=== PATIENT | male | born 1970 | race African-American/Black ===

== ENCOUNTER 2021-06-21 15:27 | Inpatient (IN) | payer MEDICAID, OTHER ==
[~2021-06-21] VITALS: Ht 185.4 cm; Wt 90.7 kg
[~2021-06-21 15:27] MED LIST: CARV25TA47; DILT60TA3; HCTZ PO; METF-414 PO
[2021-06-21] MEDS ORDERED: PIPERACILLIN/TAZ 3.375G PREMIX 50 ML IV ONE (15:45)
[2021-06-21] MEDS ORDERED: AZITHROMYCIN 500 MG in DEXT 5% WATER 250 ML IV ONE (15:45)
[2021-06-21] MEDS ORDERED: VANCOMYCIN 1 G PREMIX 200 ML IV ONE (15:45)
[2021-06-21 16:14] LABS: INR 1.1; PROTHROMBIN TIME 11.4 sec (9.6-11.0)
[2021-06-21] MEDS ORDERED: HYDRALAZINE 20MG/ML VIAL IV ONE (16:15)
[2021-06-21] MEDS ORDERED: FUROSEMIDE 40MG/4ML VIAL IVP ONE (16:15)
[2021-06-21 16:27] LABS: BASOPHILS % 0.2 % (0.0-2.0); HEMATOCRIT. 53.1 % (42.0-52.0); HEMOGLOBIN. 17.9 g/dL (14.0-18.0); LYMPHOCYTES % 11.3 % (20.0-50.0); MEAN CORPUSCULAR HEMOGLOBIN 31.1 pg (28.0-32.0); MEAN CORPUSCULAR VOLUME 92.5 fL (80.0-94.0); MEAN PLATELET VOLUME 12.8 fl (7.4-10.4); MONOCYTES % 10.9 % (2.0-8.0); NEUTROPHILS % 77.6 % (40.0-76.0); PLATELET 150 x1000/uL (130-400); RED BLOOD CELL COUNT 5.74 mill/uL (4.7-6.1); RED CELL DISTRIBUTION WIDTH 13.9 % (11.6-14.6)
[2021-06-21 17:08] LABS: CHLORIDE 95 mEq/L (98-107)
[2021-06-21 17:13] LABS: ETHANOL BLOOD < 10 mg/dL
[2021-06-21] MEDS ORDERED: INSULIN REGULAR (DRIP) 100 UNITS in SODIUM CHLORIDE 0.9% 99 ML IV NR (17:45)
[2021-06-21 18:51] LABS: CHLORIDE 95 mEq/L (98-107)
[2021-06-21 18:56] LABS: PHOSPHORUS 4.6 mg/dL (2.5-4.9)
[2021-06-21 20:46] LABS: CHLORIDE 97 mEq/L (98-107)
[2021-06-21 20:51] LABS: PHOSPHORUS 3.9 mg/dL (2.5-4.9)
[2021-06-21 23:06] LABS: CHLORIDE 100 mEq/L (98-107)
[2021-06-21 23:11] LABS: PHOSPHORUS 3.2 mg/dL (2.5-4.9)
[2021-06-21 23:53] LABS: CLARITY URINE CLEAR (CLEAR); COLOR URINE YELLOW (YELLOW); KETONES URINE 1+ (NEGATIVE); LEUKOCYTE ESTERASE URINE NEGATIVE (NEGATIVE); NITRITE URINE NEGATIVE (NEGATIVE); OCCULT BLOOD URINE NEGATIVE (NEGATIVE); PROTEIN URINE 1+ (NEGATIVE); SPECIFIC GRAVITY URINE 1.028 (1.005-1.030)
[2021-06-22 00:10] LABS: *AMPHETAMINES SCREEN URINE NEGATIVE (NEGATIVE); *COCAINE SCREEN URINE NEGATIVE (NEGATIVE); CANNABINOID URINE SCREEN NEGATIVE (NEGATIVE); METHADONE URINE SCREEN NEGATIVE (NEGATIVE); OPIATES URINE SCREEN NEGATIVE (NEGATIVE); PHENCYCLIDINE URINE SCREEN NEGATIVE (NEGATIVE)
[2021-06-22 00:11] LABS: *BARBITURATES SCREEN URINE NEGATIVE (NEGATIVE); *BENZODIAZEPINES SCREEN URINE NEGATIVE (NEGATIVE)
[2021-06-22] MEDS ORDERED: DEXTROSE 50% WATER 50ML SYRINGE IV PRN ×3 (00:30→04:00)
[2021-06-22] MEDS: SODIUM CHLORIDE 0.9% 1,000 ML IV SCH ×2 (00:37→08:35)
[2021-06-22] MEDS ORDERED: BLOOD SUGAR DIAGNOSTIC STRIP TEST SCH (01:00)
[2021-06-22 02:41] LABS: CHLORIDE 102 mEq/L (98-107)
[2021-06-22] MEDS: INSULIN LISPRO (MEDIUM DOSE) 100 UNITS/ML SUBCUT SCH ×6 (04:32→21:26)
[2021-06-22] MEDS ORDERED: INSULIN REGULAR (DRIP) 100 UNITS in SODIUM CHLORIDE 0.9% 100 ML IV SCH (06:00)
[2021-06-22 06:52] LABS: CHLORIDE 103 mEq/L (98-107)
[2021-06-22] MEDS ORDERED: INSULIN GLARGINE UD 100 UNITS/ML SYR SUBCUT SCH (10:00)
[2021-06-22 10:42] LABS: CHLORIDE 103 mEq/L (98-107)
[2021-06-22] MEDS ORDERED: ONDANSETRON HCL 4MG/2ML INJ IV PRN (10:45)
[2021-06-22] MEDS: BLOOD SUGAR DIAGNOSTIC STRIP TEST SCH ×3 (11:30→21:27)
[2021-06-22] MEDS: AZITHROMYCIN 250 MG TABLET PO SCH (11:45)
[2021-06-22] MEDS: CEFTRIAXONE 1,000 MG in DEXTROSE 5% WATER 50 ML IV SCH (11:46)
[2021-06-22] MEDS: ENOXAPARIN 40MG/0.4ML SYR SUBCUT SCH (11:46)
[2021-06-22 12:03] LABS: BG BASE EXCESS 0.2 mmol/L (-2.0-2.0); BG CARBOXYHEMOGLOBIN 0.3 % (0.5-1.5); BG DEOXYHEMOGLOBIN 4.4 % (0.0-5.0); BG FRACTION INSPIRED OXYGEN 100; BG HCO3 ACT 23.6 mmol/L (22.0-26.0); BG METHEMOGLOBIN 0.4 % (0.0-1.5); BG OXYGEN SATURATION 95.6 % (92.0-98.5); BG OXYHEMOGLOBIN 94.9 % (94.0-97.0); BG PH 7.446 (7.350-7.450); BG PO2 79.2 mmHg (75.0-100.0); BG SAMPLE SITE RIGHT RADIAL; BG TOTAL HEMOGLOBIN 18.5 g/dL (12.0-18.0); BG VENT MODE MASK - NRB
[2021-06-22 14:00] VITALS: BP 148/96
[2021-06-22] MEDS: INSULIN LISPRO 100 UNITS/ML SUBCUT SCH ×2 (14:14→17:46)
[2021-06-22 16:00] VITALS: BP 142/85
[2021-06-22] MEDS ORDERED: DEXAMETHASONE 10 MG/ML VIAL IV SCH (18:00)
[2021-06-22 20:00] VITALS: BP 143/96
[2021-06-22] MEDS: INSULIN GLARGINE UD 100 UNITS/ML SYR SUBCUT SCH (21:56)
[2021-06-23] VITALS: BP 145/87
[2021-06-23 04:00] VITALS: BP 135/90
[2021-06-23 06:01] LABS: HEMATOCRIT. 49.3 % (42.0-52.0); HEMOGLOBIN. 16.5 g/dL (14.0-18.0); MEAN CORPUSCULAR HEMOGLOBIN 31.3 pg (28.0-32.0); MEAN CORPUSCULAR VOLUME 93.6 fL (80.0-94.0); MEAN PLATELET VOLUME 11.2 fl (7.4-10.4); PLATELET 176 x1000/uL (130-400); RED BLOOD CELL COUNT 5.26 mill/uL (4.7-6.1); RED CELL DISTRIBUTION WIDTH 13.7 % (11.6-14.6)
[2021-06-23 06:06] LABS: CHLORIDE 109 mEq/L (98-107)
[2021-06-23] MEDS: BLOOD SUGAR DIAGNOSTIC STRIP TEST SCH ×4 (06:41→21:53)
[2021-06-23] MEDS: INSULIN LISPRO (MEDIUM DOSE) 100 UNITS/ML SUBCUT SCH ×4 (06:41→21:59)
[2021-06-23] MEDS: INSULIN LISPRO 100 UNITS/ML SUBCUT SCH ×3 (06:41→17:30)
[2021-06-23 08:00] VITALS: BP 151/95
[2021-06-23] MEDS: CEFTRIAXONE 1,000 MG in DEXTROSE 5% WATER 50 ML IV SCH (10:56)
[2021-06-23] MEDS: ENOXAPARIN 40MG/0.4ML SYR SUBCUT SCH (10:57)
[2021-06-23] MEDS: AZITHROMYCIN 250 MG TABLET PO SCH (10:57)
[2021-06-23] MEDS: INSULIN GLARGINE UD 100 UNITS/ML SYR SUBCUT SCH ×2 (10:59→22:00)
[2021-06-23 12:00] VITALS: BP 167/100
[2021-06-23] MEDS: BENZONATATE 100MG CAPSULE PO SCH ×2 (13:38→22:00)
[2021-06-23] MEDS: DEXAMETHASONE 4MG/ML 1ML VIAL IV SCH (13:39)
[2021-06-23] MEDS: AMLODIPINE 10MG TABLET PO SCH (13:52)
[2021-06-23 16:00] VITALS: BP 140/92
[2021-06-23] MEDS: GUAIFENESIN-DM 200MG-20MG/10ML UDC PO PRN (17:29)
[2021-06-23 20:00] VITALS: BP 155/103
[2021-06-23 21:27] LABS: PLATELET ESTIMATE NORMAL
[2021-06-24 00:20] VITALS: BP 132/96
[2021-06-24 04:00] VITALS: BP_SYST 132; BP_SYST 145; BP_DIAS 91; BP_DIAS 97
[2021-06-24] MEDS: BENZONATATE 100MG CAPSULE PO SCH ×3 (05:28→21:22)
[2021-06-24] MEDS: BLOOD SUGAR DIAGNOSTIC STRIP TEST SCH ×4 (07:12→21:21)
[2021-06-24 08:00] VITALS: BP 151/95
[2021-06-24] MEDS: AZITHROMYCIN 250 MG TABLET PO SCH (08:25)
[2021-06-24] MEDS: AMLODIPINE 10MG TABLET PO SCH (08:25)
[2021-06-24] MEDS: DEXAMETHASONE 4MG/ML 1ML VIAL IV SCH (08:26)
[2021-06-24] MEDS: INSULIN LISPRO 100 UNITS/ML SUBCUT SCH ×3 (08:30→17:33)
[2021-06-24] MEDS: INSULIN LISPRO (MEDIUM DOSE) 100 UNITS/ML SUBCUT SCH ×4 (08:31→21:24)
[2021-06-24] MEDS: ENOXAPARIN 40MG/0.4ML SYR SUBCUT SCH (10:01)
[2021-06-24] MEDS: CEFTRIAXONE 1,000 MG in DEXTROSE 5% WATER 50 ML IV SCH (10:01)
[2021-06-24] MEDS: INSULIN GLARGINE UD 100 UNITS/ML SYR SUBCUT SCH ×2 (10:02→21:23)
[2021-06-24 11:59] VITALS: BP 143/91
[2021-06-24 16:05] VITALS: BP 139/94
[2021-06-24 20:24] VITALS: BP 163/98
[2021-06-24] MEDS ORDERED: CLONIDINE 0.1MG TABLET PO PRN (20:30)
[2021-06-24] MEDS: FLUTICASONE PROPIONATE 50MCG/SPRAY BOTTLE BOTHNSTRLS SCH (21:22)
[2021-06-25 00:31] VITALS: BP 135/90
[2021-06-25 04:00] VITALS: BP 149/97
[2021-06-25] MEDS: BENZONATATE 100MG CAPSULE PO SCH ×3 (05:37→22:05)
[2021-06-25] MEDS: BLOOD SUGAR DIAGNOSTIC STRIP TEST SCH ×4 (07:15→20:16)
[2021-06-25 08:00] VITALS: BP 147/96
[2021-06-25] MEDS: AMLODIPINE 10MG TABLET PO SCH (08:49)
[2021-06-25] MEDS: AZITHROMYCIN 250 MG TABLET PO SCH (08:49)
[2021-06-25] MEDS: DEXAMETHASONE 4MG/ML 1ML VIAL IV SCH (08:51)
[2021-06-25] MEDS: INSULIN LISPRO 100 UNITS/ML SUBCUT SCH ×4 (08:52→17:26)
[2021-06-25] MEDS: FLUTICASONE PROPIONATE 50MCG/SPRAY BOTTLE BOTHNSTRLS SCH ×2 (08:52→22:04)
[2021-06-25] MEDS: INSULIN LISPRO (MEDIUM DOSE) 100 UNITS/ML SUBCUT SCH ×4 (08:53→22:04)
[2021-06-25] MEDS: ENOXAPARIN 40MG/0.4ML SYR SUBCUT SCH (10:08)
[2021-06-25] MEDS: CEFTRIAXONE 1,000 MG in DEXTROSE 5% WATER 50 ML IV SCH (10:08)
[2021-06-25] MEDS: INSULIN GLARGINE UD 100 UNITS/ML SYR SUBCUT SCH ×2 (10:09→22:05)
[2021-06-25 11:52] VITALS: BP 146/89
[2021-06-25 16:00] VITALS: BP 152/96
[2021-06-25 20:00] VITALS: BP 150/94
[2021-06-26] VITALS: BP 151/98
[2021-06-26 04:00] VITALS: BP 152/96
[2021-06-26] MEDS: BENZONATATE 100MG CAPSULE PO SCH ×3 (05:08→21:05)
[2021-06-26] MEDS: BLOOD SUGAR DIAGNOSTIC STRIP TEST SCH ×4 (07:40→21:05)
[2021-06-26 08:00] VITALS: BP 149/94
[2021-06-26] MEDS: INSULIN LISPRO (MEDIUM DOSE) 100 UNITS/ML SUBCUT SCH ×4 (08:10→21:08)
[2021-06-26] MEDS: ACETAMINOPHEN 325MG TABLET PO PRN (09:29)
[2021-06-26] MEDS: GUAIFENESIN-DM 200MG-20MG/10ML UDC PO PRN (09:29)
[2021-06-26] MEDS: ENOXAPARIN 40MG/0.4ML SYR SUBCUT SCH (09:29)
[2021-06-26] MEDS: AMLODIPINE 10MG TABLET PO SCH (09:29)
[2021-06-26] MEDS: CEFTRIAXONE 1,000 MG in DEXTROSE 5% WATER 50 ML IV SCH (09:29)
[2021-06-26] MEDS: FLUTICASONE PROPIONATE 50MCG/SPRAY BOTTLE BOTHNSTRLS SCH ×2 (09:30→21:06)
[2021-06-26] MEDS: DEXAMETHASONE 4MG/ML 1ML VIAL IV SCH (09:30)
[2021-06-26] MEDS: INSULIN LISPRO 100 UNITS/ML SUBCUT SCH ×3 (09:48→18:52)
[2021-06-26] MEDS: INSULIN GLARGINE UD 100 UNITS/ML SYR SUBCUT SCH ×2 (09:49→21:06)
[2021-06-26 12:00] VITALS: BP 136/92
[2021-06-26 16:00] VITALS: BP 133/100
[2021-06-26 20:00] VITALS: BP 138/91
[2021-06-27] VITALS: BP 140/90
[2021-06-27 04:00] VITALS: BP 151/92
[2021-06-27] MEDS: BENZONATATE 100MG CAPSULE PO SCH ×3 (06:04→21:42)
[2021-06-27] MEDS: ACETAMINOPHEN 325MG TABLET PO PRN (06:04)
[2021-06-27] MEDS: BLOOD SUGAR DIAGNOSTIC STRIP TEST SCH ×4 (07:40→21:42)
[2021-06-27 08:00] VITALS: BP 133/97
[2021-06-27] MEDS: INSULIN LISPRO (MEDIUM DOSE) 100 UNITS/ML SUBCUT SCH ×4 (08:10→21:44)
[2021-06-27] MEDS: CEFTRIAXONE 1,000 MG in DEXTROSE 5% WATER 50 ML IV SCH (09:09)
[2021-06-27] MEDS: ENOXAPARIN 40MG/0.4ML SYR SUBCUT SCH (09:09)
[2021-06-27] MEDS: DEXAMETHASONE 4MG/ML 1ML VIAL IV SCH (09:10)
[2021-06-27] MEDS: AMLODIPINE 10MG TABLET PO SCH (09:10)
[2021-06-27] MEDS: FLUTICASONE PROPIONATE 50MCG/SPRAY BOTTLE BOTHNSTRLS SCH (09:19)
[2021-06-27] MEDS: INSULIN LISPRO 100 UNITS/ML SUBCUT SCH ×3 (09:20→17:34)
[2021-06-27] MEDS: INSULIN GLARGINE UD 100 UNITS/ML SYR SUBCUT SCH ×2 (09:41→21:43)
[2021-06-27 12:00] VITALS: BP 137/92
[2021-06-27 16:00] VITALS: BP 137/88
[2021-06-27] MEDS: ERGOCALCIFEROL 50000UNITS CAPSULE PO SCH (17:33)
[2021-06-27 20:41] VITALS: BP 142/90
[2021-06-27] MEDS: ASCORBIC ACID 500 MG TABLET PO SCH (21:42)
[2021-06-28] VITALS: BP 141/92
[2021-06-28 04:00] VITALS: BP 138/91
[2021-06-28] MEDS: BENZONATATE 100MG CAPSULE PO SCH ×2 (05:26→14:09)
[2021-06-28] MEDS: BLOOD SUGAR DIAGNOSTIC STRIP TEST SCH ×4 (07:40→20:29)
[2021-06-28 08:00] VITALS: BP 131/81
[2021-06-28] MEDS: INSULIN LISPRO (MEDIUM DOSE) 100 UNITS/ML SUBCUT SCH ×3 (08:10→18:13)
[2021-06-28 08:55] LABS: BG BASE EXCESS 2.7 mmol/L (-2.0-2.0); BG CARBOXYHEMOGLOBIN 1.3 % (0.5-1.5); BG DEOXYHEMOGLOBIN 3.3 % (0.0-5.0); BG HCO3 ACT 24.2 mmol/L (22.0-26.0); BG METHEMOGLOBIN 0.3 % (0.0-1.5); BG OXYGEN SATURATION 96.6 % (92.0-98.5); BG OXYHEMOGLOBIN 95.1 % (94.0-97.0); BG PCO2 29.1 mmHg (35.0-45.0); BG PH 7.538 (7.350-7.450); BG PO2 84.4 mmHg (75.0-100.0); BG SAMPLE SITE RIGHT BRACHIAL; BG TOTAL HEMOGLOBIN 14.9 g/dL (12.0-18.0); BG VENT MODE NASAL CANNULA
[2021-06-28] MEDS: ENOXAPARIN 40MG/0.4ML SYR SUBCUT SCH (08:59)
[2021-06-28] MEDS: AMLODIPINE 10MG TABLET PO SCH (08:59)
[2021-06-28] MEDS: ASCORBIC ACID 500 MG TABLET PO SCH (08:59)
[2021-06-28] MEDS: DEXAMETHASONE 4MG/ML 1ML VIAL IV SCH (09:00)
[2021-06-28] MEDS: INSULIN LISPRO 100 UNITS/ML SUBCUT SCH (09:18)
[2021-06-28] MEDS: INSULIN GLARGINE UD 100 UNITS/ML SYR SUBCUT SCH (10:42)
[2021-06-28 12:00] VITALS: BP 145/81
[2021-06-28 16:00] VITALS: BP 122/80
[2021-06-28 20:00] VITALS: BP 140/78
[2021-06-29] VITALS: BP 149/95
[2021-06-29] MEDS: INSULIN LISPRO (MEDIUM DOSE) 100 UNITS/ML SUBCUT SCH ×3 (01:01→12:46)
[2021-06-29] MEDS: ASCORBIC ACID 500 MG TABLET PO SCH ×3 (01:02→21:36)
[2021-06-29] MEDS: BENZONATATE 100MG CAPSULE PO SCH ×4 (01:03→21:36)
[2021-06-29] MEDS: INSULIN GLARGINE UD 100 UNITS/ML SYR SUBCUT SCH ×3 (01:08→22:41)
[2021-06-29 04:00] VITALS: BP 149/98
[2021-06-29] MEDS: BLOOD SUGAR DIAGNOSTIC STRIP TEST SCH ×4 (07:29→21:37)
[2021-06-29 08:00] VITALS: BP 112/85
[2021-06-29] MEDS: DEXAMETHASONE 4MG/ML 1ML VIAL IV SCH (08:48)
[2021-06-29] MEDS: AMLODIPINE 10MG TABLET PO SCH (08:49)
[2021-06-29] MEDS: ENOXAPARIN 40MG/0.4ML SYR SUBCUT SCH (11:39)
[2021-06-29 12:00] VITALS: BP 131/79
[2021-06-29 16:00] VITALS: BP 152/88
[2021-06-29] MEDS: INSULIN LISPRO 100 UNITS/ML SUBCUT SCH ×2 (17:50→21:36)
[2021-06-29 20:00] VITALS: BP 139/83
[2021-06-30] VITALS: BP 130/86
[2021-06-30] MEDS: ALBUTEROL 6.7GM HFA INHALER ORI PRN ×2 (03:47→18:40)
[2021-06-30 04:00] VITALS: BP 132/85
[2021-06-30] MEDS: BENZONATATE 100MG CAPSULE PO SCH ×3 (06:10→21:29)
[2021-06-30 06:32] LABS: CHLORIDE 105 mEq/L (98-107)
[2021-06-30 06:50] LABS: HEMATOCRIT 42.6 % (42.0-52.0); HEMOGLOBIN 14.2 g/dL (14.0-18.0); MEAN CORPUSCULAR HEMOGLOBIN 31.3 pg (28.0-32.0); MEAN CORPUSCULAR VOLUME 93.5 fL (80.0-94.0); PLATELET 237 x1000/uL (130-400); RED BLOOD CELL COUNT 4.55 mill/uL (4.7-6.1); RED CELL DISTRIBUTION WIDTH 13.7 % (11.6-14.6)
[2021-06-30] MEDS: BLOOD SUGAR DIAGNOSTIC STRIP TEST SCH ×4 (07:00→20:58)
[2021-06-30] MEDS: INSULIN LISPRO 100 UNITS/ML SUBCUT SCH ×4 (07:57→21:29)
[2021-06-30 08:00] VITALS: BP 139/89
[2021-06-30] MEDS: ASCORBIC ACID 500 MG TABLET PO SCH ×2 (10:22→21:29)
[2021-06-30] MEDS: ENOXAPARIN 40MG/0.4ML SYR SUBCUT SCH (10:22)
[2021-06-30] MEDS: INSULIN GLARGINE UD 100 UNITS/ML SYR SUBCUT SCH ×2 (10:22→21:30)
[2021-06-30] MEDS: DEXAMETHASONE 4MG/ML 1ML VIAL IV SCH (10:22)
[2021-06-30] MEDS: AMLODIPINE 10MG TABLET PO SCH (10:23)
[2021-06-30 12:00] VITALS: BP 139/88
[2021-06-30 13:22] LABS: BG CARBOXYHEMOGLOBIN 0.9 % (0.5-1.5); BG DEOXYHEMOGLOBIN 8.2 % (0.0-5.0); BG FRACTION INSPIRED OXYGEN 21; BG METHEMOGLOBIN 0.2 % (0.0-1.5); BG OXYGEN SATURATION 91.7 % (92.0-98.5); BG OXYHEMOGLOBIN 90.7 % (94.0-97.0); BG PCO2 29.4 mmHg (35.0-45.0); BG PH 7.511 (7.350-7.450); BG SAMPLE SITE LEFT RADIAL; BG TOTAL HEMOGLOBIN 14.3 g/dL (12.0-18.0); BG VENT MODE ROOM AIR
[2021-06-30 15:48] VITALS: BP 131/85
[2021-06-30 20:00] VITALS: BP 125/86
[2021-07-01] VITALS: BP 141/98
[2021-07-01 04:00] VITALS: BP 145/94
[2021-07-01] MEDS: BENZONATATE 100MG CAPSULE PO SCH ×3 (06:07→21:35)
[2021-07-01] MEDS: BLOOD SUGAR DIAGNOSTIC STRIP TEST SCH ×4 (06:48→21:00)
[2021-07-01 08:00] VITALS: BP 129/81
[2021-07-01] MEDS: INSULIN LISPRO 100 UNITS/ML SUBCUT SCH ×4 (08:10→21:35)
[2021-07-01] MEDS: ASCORBIC ACID 500 MG TABLET PO SCH ×2 (09:46→21:35)
[2021-07-01] MEDS: AMLODIPINE 10MG TABLET PO SCH (09:46)
[2021-07-01] MEDS: DEXAMETHASONE 4MG/ML 1ML VIAL IV SCH (09:46)
[2021-07-01] MEDS: INSULIN GLARGINE UD 100 UNITS/ML SYR SUBCUT SCH ×2 (09:48→21:37)
[2021-07-01] MEDS: ENOXAPARIN 40MG/0.4ML SYR SUBCUT SCH (11:08)
[2021-07-01 12:00] VITALS: BP 123/82
[2021-07-01 16:00] VITALS: BP 128/79
[2021-07-01 20:00] VITALS: BP 116/75
[2021-07-02] VITALS: BP 144/78
[2021-07-02 04:00] VITALS: BP 116/76
[2021-07-02] MEDS: BENZONATATE 100MG CAPSULE PO SCH ×3 (05:30→21:54)
[2021-07-02] MEDS: BLOOD SUGAR DIAGNOSTIC STRIP TEST SCH ×4 (07:28→21:00)
[2021-07-02] MEDS: INSULIN LISPRO 100 UNITS/ML SUBCUT SCH ×4 (07:29→22:07)
[2021-07-02 08:00] VITALS: BP 122/86
[2021-07-02] MEDS: AMLODIPINE 10MG TABLET PO SCH (09:16)
[2021-07-02] MEDS: ASCORBIC ACID 500 MG TABLET PO SCH ×2 (09:16→21:54)
[2021-07-02] MEDS: DEXAMETHASONE 4MG/ML 1ML VIAL IV SCH (09:16)
[2021-07-02] MEDS: IPRATROPIUM/ALBUTEROL 0.5-3(2.5)MG/3ML NEB HHN SCH ×2 (10:00→15:00)
[2021-07-02] MEDS: ENOXAPARIN 40MG/0.4ML SYR SUBCUT SCH (11:23)
[2021-07-02] MEDS: INSULIN GLARGINE UD 100 UNITS/ML SYR SUBCUT SCH ×2 (11:26→22:07)
[2021-07-02 12:00] VITALS: BP 147/94
[2021-07-02 16:00] VITALS: BP 148/89
[2021-07-02] MEDS: DOCUSATE SODIUM 100MG CAPSULE PO SCH (17:34)
[2021-07-02 20:00] VITALS: BP 142/91
[2021-07-02] MEDS ORDERED: IOHEXOL-350 100 ML BOTTLE ONE (21:17)
[2021-07-03] VITALS: BP 133/87
[2021-07-03 04:00] VITALS: BP 136/90
[2021-07-03] MEDS: BENZONATATE 100MG CAPSULE PO SCH ×3 (06:16→21:19)
[2021-07-03] MEDS: BLOOD SUGAR DIAGNOSTIC STRIP TEST SCH ×4 (06:16→21:19)
[2021-07-03] MEDS: INSULIN LISPRO 100 UNITS/ML SUBCUT SCH ×4 (07:50→21:21)
[2021-07-03 08:00] VITALS: BP 147/98
[2021-07-03] MEDS: DOCUSATE SODIUM 100MG CAPSULE PO SCH ×2 (09:20→17:00)
[2021-07-03] MEDS: AMLODIPINE 10MG TABLET PO SCH (09:20)
[2021-07-03] MEDS: ASCORBIC ACID 500 MG TABLET PO SCH ×2 (09:20→21:19)
[2021-07-03] MEDS: DEXAMETHASONE 10 MG/ML VIAL IV SCH (09:21)
[2021-07-03] MEDS: ENOXAPARIN 40MG/0.4ML SYR SUBCUT SCH (10:27)
[2021-07-03] MEDS: INSULIN GLARGINE UD 100 UNITS/ML SYR SUBCUT SCH ×2 (10:29→21:22)
[2021-07-03 12:00] VITALS: BP 130/87
[2021-07-03 16:00] VITALS: BP 145/94
[2021-07-03 20:00] VITALS: BP 134/93
[2021-07-04] VITALS: BP 135/90
[2021-07-04 04:00] VITALS: BP 142/95
[2021-07-04] MEDS: BENZONATATE 100MG CAPSULE PO SCH ×3 (04:57→20:38)
[2021-07-04] MEDS: BLOOD SUGAR DIAGNOSTIC STRIP TEST SCH ×4 (07:44→20:38)
[2021-07-04 08:00] VITALS: BP 139/88
[2021-07-04] MEDS: DOCUSATE SODIUM 100MG CAPSULE PO SCH ×2 (09:36→18:31)
[2021-07-04] MEDS: AMLODIPINE 10MG TABLET PO SCH (09:36)
[2021-07-04] MEDS: ASCORBIC ACID 500 MG TABLET PO SCH ×2 (09:36→20:38)
[2021-07-04] MEDS: DEXAMETHASONE 10 MG/ML VIAL IV SCH (09:38)
[2021-07-04] MEDS: INSULIN LISPRO 100 UNITS/ML SUBCUT SCH ×4 (09:44→20:40)
[2021-07-04] MEDS: ENOXAPARIN 40MG/0.4ML SYR SUBCUT SCH (10:58)
[2021-07-04] MEDS: INSULIN GLARGINE UD 100 UNITS/ML SYR SUBCUT SCH ×2 (11:07→21:39)
[2021-07-04 12:00] VITALS: BP 156/85
[2021-07-04 16:00] VITALS: BP 131/84
[2021-07-04] MEDS: ERGOCALCIFEROL 50000UNITS CAPSULE PO SCH (18:32)
[2021-07-05] VITALS: BP 136/90
[2021-07-05 04:00] VITALS: BP 132/84
[2021-07-05] MEDS: BENZONATATE 100MG CAPSULE PO SCH ×3 (06:10→22:44)
[2021-07-05] MEDS: BLOOD SUGAR DIAGNOSTIC STRIP TEST SCH ×4 (06:10→21:00)
[2021-07-05] MEDS: INSULIN LISPRO 100 UNITS/ML SUBCUT SCH ×4 (06:11→22:45)
[2021-07-05 08:00] VITALS: BP 140/90
[2021-07-05] MEDS: IPRATROPIUM/ALBUTEROL 0.5-3(2.5)MG/3ML NEB HHN SCH ×3 (08:14→21:22)
[2021-07-05] MEDS: DOCUSATE SODIUM 100MG CAPSULE PO SCH ×2 (09:19→17:00)
[2021-07-05] MEDS: ASCORBIC ACID 500 MG TABLET PO SCH ×2 (09:20→22:44)
[2021-07-05] MEDS: AMLODIPINE 10MG TABLET PO SCH (09:20)
[2021-07-05] MEDS: DEXAMETHASONE 10 MG/ML VIAL IV SCH (09:20)
[2021-07-05] MEDS: ENOXAPARIN 40MG/0.4ML SYR SUBCUT SCH (11:10)
[2021-07-05] MEDS: INSULIN GLARGINE UD 100 UNITS/ML SYR SUBCUT SCH ×2 (11:16→22:46)
[2021-07-05 20:00] VITALS: BP 139/93
[2021-07-06] VITALS: BP 140/92
[2021-07-06] MEDS: IPRATROPIUM/ALBUTEROL 0.5-3(2.5)MG/3ML NEB HHN SCH ×4 (02:47→21:44)
[2021-07-06 04:00] VITALS: BP 139/92
[2021-07-06] MEDS: BENZONATATE 100MG CAPSULE PO SCH ×3 (06:27→21:38)
[2021-07-06] MEDS: BLOOD SUGAR DIAGNOSTIC STRIP TEST SCH ×4 (06:33→21:38)
[2021-07-06] MEDS: INSULIN LISPRO 100 UNITS/ML SUBCUT SCH ×4 (07:50→21:47)
[2021-07-06 08:00] VITALS: BP 141/92
[2021-07-06] MEDS: DEXAMETHASONE 10 MG/ML VIAL IV SCH (09:00)
[2021-07-06] MEDS: AMLODIPINE 10MG TABLET PO SCH (10:29)
[2021-07-06] MEDS: DOCUSATE SODIUM 100MG CAPSULE PO SCH ×2 (10:29→16:45)
[2021-07-06] MEDS: ASCORBIC ACID 500 MG TABLET PO SCH ×2 (10:30→21:38)
[2021-07-06] MEDS: INSULIN GLARGINE UD 100 UNITS/ML SYR SUBCUT SCH ×2 (10:34→23:01)
[2021-07-06 12:00] VITALS: BP 124/85
[2021-07-06] MEDS: ENOXAPARIN 40MG/0.4ML SYR SUBCUT SCH (12:14)
[2021-07-06 16:00] VITALS: BP 133/91
[2021-07-06 20:00] VITALS: BP 136/80
[2021-07-07] VITALS: BP 130/90
[2021-07-07] MEDS: IPRATROPIUM/ALBUTEROL 0.5-3(2.5)MG/3ML NEB HHN SCH ×4 (02:56→20:43)
[2021-07-07 04:00] VITALS: BP 139/88
[2021-07-07] MEDS: BLOOD SUGAR DIAGNOSTIC STRIP TEST SCH ×4 (07:34→21:08)
[2021-07-07 08:00] VITALS: BP 150/99
[2021-07-07] MEDS: AMLODIPINE 10MG TABLET PO SCH (08:41)
[2021-07-07] MEDS: ASCORBIC ACID 500 MG TABLET PO SCH ×2 (08:41→21:06)
[2021-07-07] MEDS: DOCUSATE SODIUM 100MG CAPSULE PO SCH ×2 (08:41→16:31)
[2021-07-07] MEDS: DEXAMETHASONE 10 MG/ML VIAL IV SCH (08:42)
[2021-07-07] MEDS: INSULIN LISPRO 100 UNITS/ML SUBCUT SCH ×4 (08:44→21:08)
[2021-07-07] MEDS: ENOXAPARIN 40MG/0.4ML SYR SUBCUT SCH (10:50)
[2021-07-07] MEDS: INSULIN GLARGINE UD 100 UNITS/ML SYR SUBCUT SCH ×2 (10:52→21:08)
[2021-07-07 12:00] VITALS: BP 116/79
[2021-07-07] MEDS: BENZONATATE 100MG CAPSULE PO SCH ×2 (13:21→21:06)
[2021-07-07 16:00] VITALS: BP 128/88
[2021-07-07 20:00] VITALS: BP 140/83
[2021-07-08] VITALS: BP 132/88
[2021-07-08] MEDS: IPRATROPIUM/ALBUTEROL 0.5-3(2.5)MG/3ML NEB HHN SCH ×4 (01:38→21:39)
[2021-07-08 04:00] VITALS: BP 131/85
[2021-07-08] MEDS: BENZONATATE 100MG CAPSULE PO SCH ×3 (04:33→21:50)
[2021-07-08] MEDS: BLOOD SUGAR DIAGNOSTIC STRIP TEST SCH ×4 (06:36→21:57)
[2021-07-08] MEDS: INSULIN LISPRO 100 UNITS/ML SUBCUT SCH ×4 (07:50→21:00)
[2021-07-08 08:00] VITALS: BP 135/82
[2021-07-08] MEDS: ASCORBIC ACID 500 MG TABLET PO SCH ×2 (10:30→21:50)
[2021-07-08] MEDS: ENOXAPARIN 40MG/0.4ML SYR SUBCUT SCH (10:30)
[2021-07-08] MEDS: DOCUSATE SODIUM 100MG CAPSULE PO SCH ×2 (10:30→17:50)
[2021-07-08] MEDS: AMLODIPINE 10MG TABLET PO SCH (10:30)
[2021-07-08] MEDS: INSULIN GLARGINE UD 100 UNITS/ML SYR SUBCUT SCH ×2 (10:33→22:00)
[2021-07-09] MEDS: IPRATROPIUM/ALBUTEROL 0.5-3(2.5)MG/3ML NEB HHN SCH ×3 (02:08→14:48)
[2021-07-09] MEDS: BLOOD SUGAR DIAGNOSTIC STRIP TEST SCH ×2 (06:45→13:11)
[2021-07-09] MEDS: BENZONATATE 100MG CAPSULE PO SCH ×2 (06:45→13:10)
[2021-07-09] MEDS: INSULIN LISPRO 100 UNITS/ML SUBCUT SCH ×2 (07:50→12:50)
[2021-07-09] MEDS: ASCORBIC ACID 500 MG TABLET PO SCH (10:05)
[2021-07-09] MEDS: DOCUSATE SODIUM 100MG CAPSULE PO SCH (10:05)
[2021-07-09] MEDS: AMLODIPINE 10MG TABLET PO SCH (10:05)
[2021-07-09] MEDS: ENOXAPARIN 40MG/0.4ML SYR SUBCUT SCH (10:06)
[2021-07-09] MEDS: INSULIN GLARGINE UD 100 UNITS/ML SYR SUBCUT SCH (10:07)
[2021-07-09 16:15] VITALS: BP 123/88
== END 2021-07-09 16:53 | DRG 720 ==
LOC: ER 15:27 → EDBEDREQ 20:57 → EDBEDREQTM 20:57 → EDBEDREQSVC 20:57 → MICUSO 23:56 → 7WST 06-22 12:40 → 6EST 07-02 09:50
PROVIDERS: ADMIT Internal Medicine; ATTEND Internal Medicine
PROC: 5A09357 Assistance with Respiratory Ventilation, Less than 24 Consecutive Hours, Continuous Positive Airway Pressure (ICD-10-PCS; principal; 2021-06-21)
DX: A41.89 Other specified sepsis (principal); J96.01 Acute respiratory failure with hypoxia; J12.82 Pneumonia due to coronavirus disease 2019; E43 Unspecified severe protein-calorie malnutrition; E11.10 Type 2 diabetes mellitus with ketoacidosis without coma; U07.1 COVID-19; E87.8 Other disorders of electrolyte and fluid balance, not elsewhere classified; D89.839 Cytokine release syndrome, grade unspecified; E87.1 Hypo-osmolality and hyponatremia; R26.9 Unspecified abnormalities of gait and mobility; E87.5 Hyperkalemia; R65.20 Severe sepsis without septic shock; I11.9 Hypertensive heart disease without heart failure; Z79.4 Long term (current) use of insulin; Z82.49 Family history of ischemic heart disease and other diseases of the circulatory system; Z68.26 Body mass index [BMI] 26.0-26.9, adult
CPT/HCPCS: 36415; 36600; 71045; 71275; 80048; 80053; 80305; 80320; 81003; 82375; 82728; 82805; 82962; 83036; 83605; 83615; 83735; 83880; 84100; 84145; 84484; 85025; 85027; 85379; 86140; 86850; 86900; 87426; 93005; 93970; 94618; 94640; 94660; 97116; 97162; 97535; 99291; C9803; J0360; J0456; J0696; J1100; J1650; J1815; J1940; J2543; J3370; J7030; J7050; J7060; Q9967; U0003; U0005; G0480

== ENCOUNTER 2021-07-09 16:53 | Inpatient (IN) | payer OTHER ==
[~2021-07-09] VITALS: Ht 188 cm; Wt 89.8 kg
[2021-07-09 17:00] VITALS: BP 131/91
[2021-07-09 18:01] VITALS: BP 131/91
[2021-07-09] MEDS ORDERED: ACETAMINOPHEN 325MG TABLET PO PRN (18:15)
[2021-07-09] MEDS ORDERED: GUAIFENESIN-DM 200MG-20MG/10ML UDC PO PRN (18:15)
[2021-07-09] MEDS ORDERED: CLONIDINE 0.1MG TABLET PO PRN (18:15)
[2021-07-09] MEDS ORDERED: DEXTROSE 50% WATER 50ML SYRINGE IV PRN (18:15)
[2021-07-09] MEDS ORDERED: ONDANSETRON 4MG ODT PO PRN (18:15)
[2021-07-09 20:00] VITALS: BP 136/96
[2021-07-09] MEDS: BLOOD SUGAR DIAGNOSTIC STRIP TEST SCH (21:00)
[2021-07-09] MEDS: ASCORBIC ACID 500 MG TABLET PO SCH (22:35)
[2021-07-09] MEDS: BENZONATATE 100MG CAPSULE PO SCH (22:36)
[2021-07-09] MEDS: INSULIN LISPRO 100 UNITS/ML SUBCUT SCH (22:37)
[2021-07-09] MEDS: INSULIN GLARGINE UD 100 UNITS/ML SYR SUBCUT SCH (22:54)
[2021-07-09] MEDS: POLYVINYL ALCOHOL OPHTH DROPS 15ML BOTHEYE PRN (22:58)
[2021-07-09] MEDS: POLYVINYL ALCOHOL OPHTH DROPS 15ML BOTHEYE SCH (22:58)
[2021-07-10] MEDS: IPRATROPIUM/ALBUTEROL 0.5-3(2.5)MG/3ML NEB HHN SCH ×4 (02:14→20:49)
[2021-07-10] MEDS: INSULIN LISPRO 100 UNITS/ML SUBCUT SCH ×4 (06:00→21:21)
[2021-07-10] MEDS: BLOOD SUGAR DIAGNOSTIC STRIP TEST SCH ×4 (06:00→21:11)
[2021-07-10] MEDS: BENZONATATE 100MG CAPSULE PO SCH ×3 (06:17→21:12)
[2021-07-10] MEDS: POLYVINYL ALCOHOL OPHTH DROPS 15ML BOTHEYE SCH ×4 (06:18→23:45)
[2021-07-10 08:00] VITALS: BP 135/95
[2021-07-10 09:17] LABS: BASOPHILS % 0.4 % (0.0-2.0); EOSINOPHILS % 0.8 % (0.0-5.0); HEMATOCRIT. 42.5 % (42.0-52.0); HEMOGLOBIN. 14.3 g/dL (14.0-18.0); MEAN CORPUSCULAR HEMOGLOBIN 31.6 pg (28.0-32.0); MEAN CORPUSCULAR VOLUME 93.8 fL (80.0-94.0); MEAN PLATELET VOLUME 11.4 fl (7.4-10.4); MONOCYTES % 6.9 % (2.0-8.0); NEUTROPHILS % 68.9 % (40.0-76.0); PLATELET 85 x1000/uL (130-400); RED BLOOD CELL COUNT 4.54 mill/uL (4.7-6.1); RED CELL DISTRIBUTION WIDTH 14.7 % (11.6-14.6)
[2021-07-10 09:25] LABS: CHLORIDE 109 mEq/L (98-107)
[2021-07-10 09:34] LABS: TOTAL IRON BINDING CAPACITY 247 ug/dL (250-450)
[2021-07-10 09:47] LABS: FOLIC ACID (FOLATE) SERUM 12.7 ng/mL (>5.38)
[2021-07-10 09:57] LABS: PROSTRATE SPECIFIC AG TOTAL 0.37 ng/mL (0.0-4.0)
[2021-07-10] MEDS: DOCUSATE SODIUM 100MG CAPSULE PO SCH ×2 (10:25→16:32)
[2021-07-10] MEDS: AMLODIPINE 10MG TABLET PO SCH (10:25)
[2021-07-10] MEDS: ASCORBIC ACID 500 MG TABLET PO SCH ×2 (10:25→21:12)
[2021-07-10] MEDS: INSULIN GLARGINE UD 100 UNITS/ML SYR SUBCUT SCH ×2 (10:33→21:21)
[2021-07-10] MEDS: ENOXAPARIN 40MG/0.4ML SYR SUBCUT SCH (10:37)
[2021-07-10] MEDS: POLYVINYL ALCOHOL OPHTH DROPS 15ML BOTHEYE PRN ×3 (12:27→23:36)
[2021-07-10] MEDS: LORATADINE 10MG TABLET PO SCH (14:59)
[2021-07-10 20:00] VITALS: BP 121/81
[2021-07-11] MEDS: IPRATROPIUM/ALBUTEROL 0.5-3(2.5)MG/3ML NEB HHN SCH ×2 (01:10→20:20)
[2021-07-11] MEDS: POLYVINYL ALCOHOL OPHTH DROPS 15ML BOTHEYE SCH ×4 (05:52→23:16)
[2021-07-11] MEDS: BENZONATATE 100MG CAPSULE PO SCH ×3 (05:52→21:22)
[2021-07-11] MEDS: BLOOD SUGAR DIAGNOSTIC STRIP TEST SCH ×4 (06:00→21:02)
[2021-07-11] MEDS: INSULIN LISPRO 100 UNITS/ML SUBCUT SCH ×4 (06:31→21:00)
[2021-07-11 08:26] VITALS: BP 131/86
[2021-07-11] MEDS: ERGOCALCIFEROL 50000UNITS CAPSULE PO SCH (09:06)
[2021-07-11] MEDS: ASCORBIC ACID 500 MG TABLET PO SCH ×2 (09:06→21:22)
[2021-07-11] MEDS: DOCUSATE SODIUM 100MG CAPSULE PO SCH ×2 (09:06→16:01)
[2021-07-11] MEDS: LORATADINE 10MG TABLET PO SCH (09:06)
[2021-07-11] MEDS: AMLODIPINE 10MG TABLET PO SCH (09:06)
[2021-07-11] MEDS: LACTULOSE 20G/30ML UDC PO SCH ×3 (11:14→17:00)
[2021-07-11] MEDS: INSULIN GLARGINE UD 100 UNITS/ML SYR SUBCUT SCH ×2 (11:52→21:23)
[2021-07-11] MEDS: POLYVINYL ALCOHOL OPHTH DROPS 15ML BOTHEYE PRN (12:36)
[2021-07-11 20:00] VITALS: BP 130/83
[2021-07-11] MEDS: POLYETHYLENE GLYCOL 3350 (17GM) 1 DOSE PACK PO SCH (21:22)
[2021-07-12] MEDS: IPRATROPIUM/ALBUTEROL 0.5-3(2.5)MG/3ML NEB HHN SCH ×4 (00:13→21:12)
[2021-07-12] MEDS: BENZONATATE 100MG CAPSULE PO SCH ×3 (05:45→21:36)
[2021-07-12] MEDS: POLYVINYL ALCOHOL OPHTH DROPS 15ML BOTHEYE SCH ×2 (05:45→12:49)
[2021-07-12 06:18] LABS: BASOPHILS % 0.4 % (0.0-2.0); EOSINOPHILS % 1.9 % (0.0-5.0); HEMATOCRIT. 36.3 % (42.0-52.0); HEMOGLOBIN. 11.9 g/dL (14.0-18.0); LYMPHOCYTES % 22.9 % (20.0-50.0); MEAN CORPUSCULAR HEMOGLOBIN 31.1 pg (28.0-32.0); MEAN CORPUSCULAR VOLUME 94.6 fL (80.0-94.0); MEAN PLATELET VOLUME 9.9 fl (7.4-10.4); MONOCYTES % 12.1 % (2.0-8.0); NEUTROPHILS % 62.7 % (40.0-76.0); PLATELET 75 x1000/uL (130-400); RED BLOOD CELL COUNT 3.83 mill/uL (4.7-6.1); RED CELL DISTRIBUTION WIDTH 14.3 % (11.6-14.6)
[2021-07-12] MEDS: BLOOD SUGAR DIAGNOSTIC STRIP TEST SCH ×4 (06:31→21:00)
[2021-07-12] MEDS: INSULIN LISPRO 100 UNITS/ML SUBCUT SCH ×4 (06:38→21:41)
[2021-07-12 06:52] LABS: CHLORIDE 104 mEq/L (98-107)
[2021-07-12] MEDS: LORATADINE 10MG TABLET PO SCH (09:33)
[2021-07-12] MEDS: ASCORBIC ACID 500 MG TABLET PO SCH ×2 (09:34→20:36)
[2021-07-12] MEDS: AMLODIPINE 10MG TABLET PO SCH (09:34)
[2021-07-12] MEDS: DOCUSATE SODIUM 100MG CAPSULE PO SCH ×2 (09:34→17:39)
[2021-07-12] MEDS: INSULIN GLARGINE UD 100 UNITS/ML SYR SUBCUT SCH ×2 (11:31→21:41)
[2021-07-12 20:00] VITALS: BP 135/81
[2021-07-12] MEDS: POLYETHYLENE GLYCOL 3350 (17GM) 1 DOSE PACK PO SCH (20:36)
[2021-07-13] MEDS: IPRATROPIUM/ALBUTEROL 0.5-3(2.5)MG/3ML NEB HHN SCH ×2 (01:18→07:27)
[2021-07-13] MEDS: BENZONATATE 100MG CAPSULE PO SCH ×3 (05:25→21:27)
[2021-07-13] MEDS: POLYVINYL ALCOHOL OPHTH DROPS 15ML BOTHEYE PRN ×2 (05:26→12:27)
[2021-07-13] MEDS: POLYVINYL ALCOHOL OPHTH DROPS 15ML BOTHEYE SCH ×5 (05:28→23:49)
[2021-07-13] MEDS: BLOOD SUGAR DIAGNOSTIC STRIP TEST SCH ×4 (05:40→21:17)
[2021-07-13] MEDS: INSULIN LISPRO 100 UNITS/ML SUBCUT SCH ×4 (05:54→21:26)
[2021-07-13 08:00] VITALS: BP 133/74
[2021-07-13] MEDS: DOCUSATE SODIUM 100MG CAPSULE PO SCH ×2 (09:32→16:45)
[2021-07-13] MEDS: ASCORBIC ACID 500 MG TABLET PO SCH ×2 (09:32→20:27)
[2021-07-13] MEDS: AMLODIPINE 10MG TABLET PO SCH (09:32)
[2021-07-13] MEDS: LORATADINE 10MG TABLET PO SCH (09:32)
[2021-07-13] MEDS: INSULIN GLARGINE UD 100 UNITS/ML SYR SUBCUT SCH ×2 (09:34→21:27)
[2021-07-13] MEDS ORDERED: IPRATROPIUM/ALBUTEROL 0.5-3(2.5)MG/3ML NEB HHN PRN (11:30)
[2021-07-13] MEDS ORDERED: FLUTICASONE PROPIONATE 50MCG/SPRAY BOTTLE BOTHNSTRLS PRN (16:15)
[2021-07-13 20:00] VITALS: BP 127/84
[2021-07-13] MEDS: POLYETHYLENE GLYCOL 3350 (17GM) 1 DOSE PACK PO SCH (20:27)
[2021-07-14] MEDS: POLYVINYL ALCOHOL OPHTH DROPS 15ML BOTHEYE SCH ×4 (05:45→23:22)
[2021-07-14] MEDS: BENZONATATE 100MG CAPSULE PO SCH ×3 (05:45→21:37)
[2021-07-14] MEDS: BLOOD SUGAR DIAGNOSTIC STRIP TEST SCH ×4 (06:32→21:32)
[2021-07-14] MEDS: INSULIN LISPRO 100 UNITS/ML SUBCUT SCH ×4 (06:49→21:00)
[2021-07-14 07:15] LABS: BASOPHILS % 0.2 % (0.0-2.0); EOSINOPHILS % 3.1 % (0.0-5.0); HEMATOCRIT. 35.6 % (42.0-52.0); LYMPHOCYTES % 32.1 % (20.0-50.0); MEAN CORPUSCULAR HEMOGLOBIN 31.3 pg (28.0-32.0); MEAN CORPUSCULAR VOLUME 93.1 fL (80.0-94.0); MEAN PLATELET VOLUME 10.5 fl (7.4-10.4); MONOCYTES % 12.1 % (2.0-8.0); NEUTROPHILS % 52.5 % (40.0-76.0); PLATELET 91 x1000/uL (130-400); RED BLOOD CELL COUNT 3.83 mill/uL (4.7-6.1)
[2021-07-14 07:19] LABS: CHLORIDE 107 mEq/L (98-107)
[2021-07-14 09:30] VITALS: BP 145/94
[2021-07-14] MEDS: INSULIN GLARGINE UD 100 UNITS/ML SYR SUBCUT SCH ×2 (09:32→21:39)
[2021-07-14] MEDS: DOCUSATE SODIUM 100MG CAPSULE PO SCH ×2 (09:33→18:33)
[2021-07-14] MEDS: AMLODIPINE 10MG TABLET PO SCH (09:33)
[2021-07-14] MEDS: ASCORBIC ACID 500 MG TABLET PO SCH ×2 (09:33→20:46)
[2021-07-14] MEDS: LORATADINE 10MG TABLET PO SCH (09:34)
[2021-07-14 15:11] LABS: 25-HYDROXY VITAMIN D3 15 ng/mL (.)
[2021-07-14 20:00] VITALS: BP 134/80
[2021-07-14] MEDS: POLYETHYLENE GLYCOL 3350 (17GM) 1 DOSE PACK PO SCH (20:46)
[2021-07-15] MEDS: BENZONATATE 100MG CAPSULE PO SCH ×3 (06:15→21:10)
[2021-07-15] MEDS: POLYVINYL ALCOHOL OPHTH DROPS 15ML BOTHEYE SCH ×4 (06:18→23:15)
[2021-07-15] MEDS: BLOOD SUGAR DIAGNOSTIC STRIP TEST SCH ×4 (06:24→21:12)
[2021-07-15] MEDS: INSULIN LISPRO 100 UNITS/ML SUBCUT SCH ×4 (06:24→21:12)
[2021-07-15 08:04] VITALS: BP 146/94
[2021-07-15] MEDS: ASCORBIC ACID 500 MG TABLET PO SCH ×2 (09:04→21:10)
[2021-07-15] MEDS: AMLODIPINE 10MG TABLET PO SCH (09:04)
[2021-07-15] MEDS: DOCUSATE SODIUM 100MG CAPSULE PO SCH ×2 (09:04→17:05)
[2021-07-15] MEDS: LORATADINE 10MG TABLET PO SCH (09:09)
[2021-07-15] MEDS: INSULIN GLARGINE UD 100 UNITS/ML SYR SUBCUT SCH ×2 (10:19→21:16)
[2021-07-15 20:00] VITALS: BP 136/89
[2021-07-15] MEDS: POLYETHYLENE GLYCOL 3350 (17GM) 1 DOSE PACK PO SCH (21:10)
[2021-07-15] MEDS: POLYVINYL ALCOHOL OPHTH DROPS 15ML BOTHEYE PRN (23:15)
[2021-07-16] MEDS: POLYVINYL ALCOHOL OPHTH DROPS 15ML BOTHEYE SCH ×3 (06:00→17:13)
[2021-07-16] MEDS: BLOOD SUGAR DIAGNOSTIC STRIP TEST SCH ×4 (06:13→21:04)
[2021-07-16] MEDS: BENZONATATE 100MG CAPSULE PO SCH ×3 (06:15→21:05)
[2021-07-16] MEDS: POLYVINYL ALCOHOL OPHTH DROPS 15ML BOTHEYE PRN (06:16)
[2021-07-16] MEDS: INSULIN LISPRO 100 UNITS/ML SUBCUT SCH ×4 (06:20→21:07)
[2021-07-16 08:00] VITALS: BP 147/98
[2021-07-16] MEDS: LORATADINE 10MG TABLET PO SCH (09:16)
[2021-07-16] MEDS: AMLODIPINE 10MG TABLET PO SCH (09:16)
[2021-07-16] MEDS: ASCORBIC ACID 500 MG TABLET PO SCH ×2 (09:16→21:05)
[2021-07-16] MEDS: DOCUSATE SODIUM 100MG CAPSULE PO SCH ×2 (09:16→17:12)
[2021-07-16 20:00] VITALS: BP 126/83
[2021-07-16] MEDS: POLYETHYLENE GLYCOL 3350 (17GM) 1 DOSE PACK PO SCH (21:05)
[2021-07-16] MEDS: INSULIN GLARGINE UD 100 UNITS/ML SYR SUBCUT SCH (21:07)
[2021-07-17] MEDS: BENZONATATE 100MG CAPSULE PO SCH ×3 (05:44→21:14)
[2021-07-17] MEDS: POLYVINYL ALCOHOL OPHTH DROPS 15ML BOTHEYE SCH ×5 (05:45→23:12)
[2021-07-17] MEDS: BLOOD SUGAR DIAGNOSTIC STRIP TEST SCH ×4 (05:48→21:14)
[2021-07-17] MEDS: INSULIN LISPRO 100 UNITS/ML SUBCUT SCH ×4 (05:49→21:13)
[2021-07-17 07:48] LABS: BASOPHILS % 0.6 % (0.0-2.0); EOSINOPHILS % 1.7 % (0.0-5.0); HEMATOCRIT. 34.7 % (42.0-52.0); HEMOGLOBIN. 11.6 g/dL (14.0-18.0); LYMPHOCYTES % 22.6 % (20.0-50.0); MEAN CORPUSCULAR HEMOGLOBIN 30.8 pg (28.0-32.0); MEAN CORPUSCULAR VOLUME 92.2 fL (80.0-94.0); MEAN PLATELET VOLUME 10.5 fl (7.4-10.4); NEUTROPHILS % 67.1 % (40.0-76.0); PLATELET 164 x1000/uL (130-400); RED BLOOD CELL COUNT 3.76 mill/uL (4.7-6.1); RED CELL DISTRIBUTION WIDTH 14.2 % (11.6-14.6)
[2021-07-17 08:00] VITALS: BP 156/95
[2021-07-17 08:03] LABS: CHLORIDE 109 mEq/L (98-107)
[2021-07-17] MEDS: ASCORBIC ACID 500 MG TABLET PO SCH ×2 (08:48→21:14)
[2021-07-17] MEDS: AMLODIPINE 10MG TABLET PO SCH (08:49)
[2021-07-17] MEDS: DOCUSATE SODIUM 100MG CAPSULE PO SCH ×2 (08:49→17:28)
[2021-07-17] MEDS: LORATADINE 10MG TABLET PO SCH (08:49)
[2021-07-17] MEDS: INSULIN GLARGINE UD 100 UNITS/ML SYR SUBCUT SCH ×2 (10:49→21:14)
[2021-07-17] MEDS: POLYVINYL ALCOHOL OPHTH DROPS 15ML BOTHEYE PRN ×2 (12:48→17:28)
[2021-07-17 20:00] VITALS: BP 136/90
[2021-07-17] MEDS: POLYETHYLENE GLYCOL 3350 (17GM) 1 DOSE PACK PO SCH ×2 (21:00→21:14)
[2021-07-18] MEDS: BENZONATATE 100MG CAPSULE PO SCH ×3 (07:06→21:41)
[2021-07-18] MEDS: POLYVINYL ALCOHOL OPHTH DROPS 15ML BOTHEYE SCH ×4 (07:07→23:23)
[2021-07-18] MEDS: BLOOD SUGAR DIAGNOSTIC STRIP TEST SCH ×4 (07:07→20:42)
[2021-07-18 08:00] VITALS: BP 142/91
[2021-07-18] MEDS: AMLODIPINE 10MG TABLET PO SCH (08:30)
[2021-07-18] MEDS: ASCORBIC ACID 500 MG TABLET PO SCH ×2 (08:30→21:41)
[2021-07-18] MEDS: LORATADINE 10MG TABLET PO SCH (08:30)
[2021-07-18] MEDS: DOCUSATE SODIUM 100MG CAPSULE PO SCH ×2 (08:31→17:56)
[2021-07-18] MEDS: ERGOCALCIFEROL 50000UNITS CAPSULE PO SCH (08:31)
[2021-07-18] MEDS: INSULIN LISPRO 100 UNITS/ML SUBCUT SCH ×4 (08:34→21:42)
[2021-07-18] MEDS: INSULIN GLARGINE UD 100 UNITS/ML SYR SUBCUT SCH ×2 (11:02→21:41)
[2021-07-18] MEDS: ENOXAPARIN 40MG/0.4ML SYR SUBCUT SCH (11:04)
[2021-07-18 20:00] VITALS: BP 145/84
[2021-07-18] MEDS: POLYETHYLENE GLYCOL 3350 (17GM) 1 DOSE PACK PO SCH (21:00)
[2021-07-19] MEDS: BENZONATATE 100MG CAPSULE PO SCH ×3 (06:12→21:10)
[2021-07-19] MEDS: POLYVINYL ALCOHOL OPHTH DROPS 15ML BOTHEYE SCH ×3 (06:12→17:11)
[2021-07-19] MEDS: BLOOD SUGAR DIAGNOSTIC STRIP TEST SCH ×4 (06:13→20:57)
[2021-07-19] MEDS: INSULIN LISPRO 100 UNITS/ML SUBCUT SCH ×4 (06:13→20:56)
[2021-07-19 08:00] VITALS: BP 142/95
[2021-07-19] MEDS: LORATADINE 10MG TABLET PO SCH (09:41)
[2021-07-19] MEDS: DOCUSATE SODIUM 100MG CAPSULE PO SCH ×2 (09:41→17:11)
[2021-07-19] MEDS: ASCORBIC ACID 500 MG TABLET PO SCH ×2 (09:41→21:10)
[2021-07-19] MEDS: AMLODIPINE 10MG TABLET PO SCH (09:41)
[2021-07-19] MEDS: INSULIN GLARGINE UD 100 UNITS/ML SYR SUBCUT SCH ×2 (09:50→20:57)
[2021-07-19] MEDS: ENOXAPARIN 40MG/0.4ML SYR SUBCUT SCH (12:00)
[2021-07-19 20:00] VITALS: BP 138/91
[2021-07-19] MEDS: POLYETHYLENE GLYCOL 3350 (17GM) 1 DOSE PACK PO SCH (20:55)
[2021-07-20] MEDS: POLYVINYL ALCOHOL OPHTH DROPS 15ML BOTHEYE SCH ×4 (01:30→17:32)
[2021-07-20] MEDS: POLYVINYL ALCOHOL OPHTH DROPS 15ML BOTHEYE PRN (05:51)
[2021-07-20] MEDS: BENZONATATE 100MG CAPSULE PO SCH ×3 (05:51→21:42)
[2021-07-20] MEDS: INSULIN LISPRO 100 UNITS/ML SUBCUT SCH ×4 (06:00→20:52)
[2021-07-20] MEDS: BLOOD SUGAR DIAGNOSTIC STRIP TEST SCH ×4 (06:00→20:52)
[2021-07-20 08:42] VITALS: BP 131/96
[2021-07-20] MEDS: LORATADINE 10MG TABLET PO SCH (08:50)
[2021-07-20] MEDS: AMLODIPINE 10MG TABLET PO SCH (08:51)
[2021-07-20] MEDS: ASCORBIC ACID 500 MG TABLET PO SCH ×2 (08:51→21:42)
[2021-07-20] MEDS: DOCUSATE SODIUM 100MG CAPSULE PO SCH ×2 (08:51→17:31)
[2021-07-20] MEDS: INSULIN GLARGINE UD 100 UNITS/ML SYR SUBCUT SCH (09:03)
[2021-07-20] MEDS: ENOXAPARIN 40MG/0.4ML SYR SUBCUT SCH (11:31)
[2021-07-20 20:00] VITALS: BP 126/99
[2021-07-20] MEDS: POLYETHYLENE GLYCOL 3350 (17GM) 1 DOSE PACK PO SCH (21:00)
[2021-07-20] MEDS ORDERED: INSULIN GLARGINE UD 100 UNITS/ML SYR SUBCUT SCH (22:00)
[2021-07-21] MEDS: BENZONATATE 100MG CAPSULE PO SCH ×3 (05:03→21:45)
[2021-07-21] MEDS: POLYVINYL ALCOHOL OPHTH DROPS 15ML BOTHEYE SCH ×5 (05:04→23:23)
[2021-07-21] MEDS: BLOOD SUGAR DIAGNOSTIC STRIP TEST SCH ×4 (05:55→20:42)
[2021-07-21] MEDS: INSULIN LISPRO 100 UNITS/ML SUBCUT SCH ×4 (05:55→20:42)
[2021-07-21 06:37] LABS: BASOPHILS % 0.4 % (0.0-2.0); EOSINOPHILS % 1.8 % (0.0-5.0); HEMATOCRIT. 38.6 % (42.0-52.0); HEMOGLOBIN. 12.9 g/dL (14.0-18.0); LYMPHOCYTES % 52.5 % (20.0-50.0); MEAN CORPUSCULAR VOLUME 92.8 fL (80.0-94.0); MONOCYTES % 10.3 % (2.0-8.0); PLATELET 285 x1000/uL (130-400); RED BLOOD CELL COUNT 4.16 mill/uL (4.7-6.1); RED CELL DISTRIBUTION WIDTH 14.6 % (11.6-14.6)
[2021-07-21 07:49] LABS: CHLORIDE 109 mEq/L (98-107)
[2021-07-21 08:00] VITALS: BP 132/92
[2021-07-21] MEDS: DOCUSATE SODIUM 100MG CAPSULE PO SCH ×2 (09:28→17:21)
[2021-07-21] MEDS: LORATADINE 10MG TABLET PO SCH (09:28)
[2021-07-21] MEDS: ASCORBIC ACID 500 MG TABLET PO SCH ×2 (09:28→20:41)
[2021-07-21] MEDS ORDERED: AMLO10TA80 PO (09:28)
[2021-07-21] MEDS ORDERED: INSU100I28 SQ (09:28)
[2021-07-21] MEDS: AMLODIPINE 10MG TABLET PO SCH (09:29)
[2021-07-21] MEDS: INSULIN GLARGINE UD 100 UNITS/ML SYR SUBCUT SCH ×2 (10:00→21:47)
[2021-07-21] MEDS: ENOXAPARIN 40MG/0.4ML SYR SUBCUT SCH (10:47)
[2021-07-21] MEDS: POLYVINYL ALCOHOL OPHTH DROPS 15ML BOTHEYE PRN (10:47)
[2021-07-21 20:00] VITALS: BP 134/90
[2021-07-21] MEDS: POLYETHYLENE GLYCOL 3350 (17GM) 1 DOSE PACK PO SCH (20:43)
[2021-07-22] MEDS: BENZONATATE 100MG CAPSULE PO SCH ×2 (05:34→13:16)
[2021-07-22] MEDS: POLYVINYL ALCOHOL OPHTH DROPS 15ML BOTHEYE SCH ×2 (05:34→11:01)
[2021-07-22] MEDS: BLOOD SUGAR DIAGNOSTIC STRIP TEST SCH ×2 (05:35→11:01)
[2021-07-22 08:00] VITALS: BP 127/87
[2021-07-22] MEDS: AMLODIPINE 10MG TABLET PO SCH (08:12)
[2021-07-22] MEDS: INSULIN LISPRO 100 UNITS/ML SUBCUT SCH ×2 (08:12→12:24)
[2021-07-22] MEDS: DOCUSATE SODIUM 100MG CAPSULE PO SCH (08:12)
[2021-07-22] MEDS: ASCORBIC ACID 500 MG TABLET PO SCH (08:12)
[2021-07-22] MEDS: LORATADINE 10MG TABLET PO SCH (08:12)
[2021-07-22 10:31] VITALS: BP 127/87
[2021-07-22] MEDS: ENOXAPARIN 40MG/0.4ML SYR SUBCUT SCH (10:57)
[2021-07-22] MEDS: INSULIN GLARGINE UD 100 UNITS/ML SYR SUBCUT SCH (11:20)
== END 2021-07-22 15:50 | disposition home health service (06) | DRG 861 ==
PROVIDERS: ADMIT Physical Medicine & Rehabilitation Spinal Cord Injury Medicine; ATTEND Internal Medicine
DX: R53.81 Other malaise (principal); J12.82 Pneumonia due to coronavirus disease 2019; E43 Unspecified severe protein-calorie malnutrition; D69.6 Thrombocytopenia, unspecified; E11.649 Type 2 diabetes mellitus with hypoglycemia without coma; E87.8 Other disorders of electrolyte and fluid balance, not elsewhere classified; D72.829 Elevated white blood cell count, unspecified; E55.9 Vitamin D deficiency, unspecified; I10 Essential (primary) hypertension; R09.02 Hypoxemia; Z60.2 Problems related to living alone; R26.89 Other abnormalities of gait and mobility; R00.0 Tachycardia, unspecified; Z68.25 Body mass index [BMI] 25.0-25.9, adult; Z82.49 Family history of ischemic heart disease and other diseases of the circulatory system; Z87.01 Personal history of pneumonia (recurrent); Z86.16 Personal history of COVID-19; Z79.899 Other long term (current) drug therapy; Z79.84 Long term (current) use of oral hypoglycemic drugs
CPT/HCPCS: 36415; 80048; 80053; 82306; 82607; 82728; 82746; 82962; 83036; 83540; 83550; 84134; 84153; 84443; 85025; 92610; 93970; 94618; 94640; 97110; 97116; 97162; 97166; 97530; 97535; J1650; J1815; G0103

== ENCOUNTER 2023-01-14 23:41 | Emergency (ER) | payer MEDICAID, OTHER ==
[~2023-01-14] VITALS: Ht 185.4 cm; Wt 102.0 kg
[~2023-01-14 23:41] MED LIST changes: +AMLO10TA80 PO; -CARV25TA47; -DILT60TA3; -HCTZ PO; +INSU100I28 SQ
[2023-01-15 00:08] VITALS: BP 171/115
== END 2023-01-15 05:07 | disposition home or self-care (01) ==
LOC: ER 23:41
DX: R05.9 Cough, unspecified (principal); G47.00 Insomnia, unspecified; I10 Essential (primary) hypertension; E11.9 Type 2 diabetes mellitus without complications; Z86.16 Personal history of COVID-19; Z98.890 Other specified postprocedural states
CPT/HCPCS: 71045; 93005; 99283